=== PATIENT | male | born 1965 | race Two or more races ===

== ENCOUNTER → 2025-03-29 | Outpatient (CLI) | payer MEDICAID, SELFPAY ==
--- NOTE | 2025-03-29 15:30 | XR_ITS ---
Examination: CT abdomen and pelvis without contrast. Coronal 3-D reconstructions. Sagittal 2-D reconstructions. Date and time of exam:March 29, 2025 1552 hours INDICATIONS: History kidney stones diagnosed 4 months ago CTDI: vol (mGy): 8.81 DLP: (mGycm): 517 Technique: Axial images of the abdomen have been obtained, 3 mm slice thickness Intravenous contrast material has not been administered. Low dose protocols were performed. One or more of the following dose reduction techniques were used; automated exposure control, adjustment of the mA and/or KV according to patient size, use of iterative reconstruction technique. Findings: No focal liver or splenic lesions No gallstones No pancreatic or adrenal mass Bilateral 1 to 2 mm renal calculi No hydronephrosis or ureteral calculi Aorta normal size Normal appendix No bowel obstruction No diverticulitis Urinary bladder wall thickening anteriorly up to 9 mm No prostatomegaly Tiny fat-containing inguinal hernias Moderate osteopenia IMPRESSION: A tiny bilateral nonobstructing renal calculi No hydronephrosis or ureteral calculi Urinary bladder wall thickening anteriorly up to 9 mm, differential would include cystitis
== END | disposition home or self-care (01) ==
PROVIDERS: PCP Nurse Practitioner Family; Referring Provider Nurse Practitioner Family; Visit Provider Nurse Practitioner Family
DX: N20.0 Calculus of kidney (principal)
CPT/HCPCS: 74176